=== PATIENT | female | born 1975 ===

== ENCOUNTER 2023-06-02 13:12 | Emergency (ER) | payer MEDICAID ==
[~2023-06-02] VITALS: Ht 152.4 cm; Wt 90.7 kg
[2023-06-02 13:55] VITALS: BP 147/99
[2023-06-02] MEDS ORDERED: Bactrim Ds Tab1 EACH PO (15:05)
[2023-06-02] MEDS ORDERED: HYDR1TAB94 PO ×2 (16:16→16:17)
== END 2023-06-02 16:20 | disposition home or self-care (01) ==
LOC: ER 13:12
DX: L03.031 Cellulitis of right toe (principal); L60.0 Ingrowing nail; E11.9 Type 2 diabetes mellitus without complications
CPT/HCPCS: 11750; 73660; 99283-25